=== PATIENT | female | born 1930 | race Caucasian/White ===

== ENCOUNTER 2016-12-08 08:47 | Day surgery (SDC) | payer MEDICARE ==
[~2016-12-08 08:47] MED LIST: Buffered Lidocaine 0.9% SYRIN* 5 ML/SYR SYRINGE INTRADERM ONE
[2016-12-08] MEDS ORDERED: ceFAZolin 2 GM PREMIX (*) 50 ML BAG (BBraun bag) IVPB ONE (09:14)
[2016-12-08] MEDS ORDERED: Midazolam* 1 MG/ML 5 ML VIAL (5 MG) ONE (09:53)
[2016-12-08] MEDS ORDERED: fentaNYL* 50 MCG/ML 2 ML VIAL (100 MCG VIAL) ONE (09:53)
[2016-12-08] MEDS ORDERED: Lidocaine 1.5% EPI 1:200,000* 30 ML SDV ONE (10:10)
[2016-12-08] MEDS ORDERED: Mineral Oil Sterile, TOPICAL* 25 ML BTL ONE (10:11)
[2016-12-08] MEDS ORDERED: Bupivacaine 0.25% EPI 200,000* 30 ML SDV ONE (10:21)
[2016-12-08] MEDS ORDERED: Methylene Blue 0.5 %* 50 MG/10 ML AMP IV ONE (10:22)
[2016-12-08 13:25] VITALS: BP 102/57
== END 2016-12-08 13:20 | disposition home or self-care (01) ==
LOC: OREAST 08:47
PROVIDERS: ATTEND Plastic Surgery
DX: C44.311 Basal cell carcinoma of skin of nose (principal); I10 Essential (primary) hypertension; Z87.891 Personal history of nicotine dependence; E03.9 Hypothyroidism, unspecified; E11.9 Type 2 diabetes mellitus without complications; Z79.84 Long term (current) use of oral hypoglycemic drugs
CPT/HCPCS: A9270-GY; J0690; J2250; J3010

== ENCOUNTER 2017-02-08 07:07 | Day surgery (SDC) | payer MEDICARE ==
[~2017-02-08 07:07] MED LIST changes: +Acetaminophen TAB* 325 MG PO PRN
[2017-02-08] MEDS ORDERED: Midazolam* 1 MG/ML 2 ML VIAL (2 MG) ONE (09:20)
[2017-02-08 09:50] VITALS: BP 112/45
[2017-02-08] MEDS ORDERED: Ketorolac 0.5% OPHTH (NF) 0.5 % 5 ML BTL ONE (10:54)
[2017-02-08] MEDS ORDERED: acetaZOLAMIDE TAB* 250 MG ONE (10:54)
[2017-02-08] MEDS ORDERED: Proparacaine 0.5% OPHTH.SOL* 15 ML BTL ONE (10:54)
[2017-02-08] MEDS ORDERED: Lidocaine 1% MPF* 2 ML VIAL ONE (10:54)
[2017-02-08] MEDS ORDERED: Cyclopentolate 1% OPTH.SOL* 2 ML BTL ONE (10:54)
[2017-02-08] MEDS ORDERED: Phenylephrine 2.5% OPTH.SOL* 2 ML BTL ONE (10:54)
[2017-02-08] MEDS ORDERED: Buffered Lidocaine 0.9% SYRIN* 5 ML/SYR SYRINGE ONE (10:54)
[2017-02-08] MEDS ORDERED: Neomycin/Polymy/Dex OPTH.SUSP* MAXITROL 0.1% 5 ML ONE (10:54)
[2017-02-08] MEDS ORDERED: Povidone Iodine 5% OPTH* 30 ML BTL ONE (10:54)
[2017-02-08] MEDS ORDERED: Lidocaine 2% EPI 1:200000 MPF* 20 ML VIAL ONE (10:54)
--- NOTE | 2017-02-08 10:54 | OP ---
OPERATIVE NOTE: DATE OF OPERATION: 02/08/17 DATE OF : [birth year] SURGEON: Baldev Toscano M.D. PREOPERATIVE DIAGNOSIS: Cataract, right eye. POSTOPERATIVE DIAGNOSIS: Cataract, right eye. OPERATIVE PROCEDURE: Phacoemulsification, right eye, with IOL. DESCRIPTION OF PROCEDURE: The patient was brought to the operating room after being given 1/2% Alca ine with epinephrine drops in the preoperative area. The eye was prepped and draped in the usual st erile fashion. Sterile drape and eyelid speculum were placed. Again, topical 1/2% Alcaine with epi nephrine was given. A paracentesis incision was made at the 9 o'clock position with the No.75 blade . Clear cornea incision 2.2 x 2.2-mm was created at the 12 o'clock position starting at the anterior limbus using the 2.2-mm keratome. The anterior chamber was irrigated with 0.4 mL of 1% non-preserv ative intracameral lidocaine and filled with DisCoVisc. A capsulorrhexis was completed using the cy stotome and the Utrata forceps. Hydrodissection was performed with balanced salt solution. The dolores s nucleus was removed with the Phacoemulsification handpiece without incident. Cortex was removed wi th the irrigation-aspiration handpiece. The capsular bag was re-inflated using DisCoVisc and an [id number] implant was inserted with the shooter. The pupil was very small, less than 3 mm, so a Malyugi n ring was used to dilate the pupil prior to capsulorrhexis and removed after insertion of the lens. The irrigation-aspiration handpiece was used to remove all residual DisCoVisc. The eye was refill ed with balanced salt solution and the wound checked and found to be watertight. Topical Maxitrol d rops were given. Indication for complex cataract surgery: Pupil abnormalities requiring pupil dilation device. [id number]/[facility] [place] #: [id number]
== END 2017-02-08 10:05 | disposition home or self-care (01) ==
LOC: OREAST 07:07
PROVIDERS: ATTEND Specialist
DX: E11.36 Type 2 diabetes mellitus with diabetic cataract (principal); H25.813 Combined forms of age-related cataract, bilateral; H57.09 Other anomalies of pupillary function; Z79.84 Long term (current) use of oral hypoglycemic drugs; E78.00 Pure hypercholesterolemia, unspecified; I10 Essential (primary) hypertension; Z85.828 Personal history of other malignant neoplasm of skin; Z87.891 Personal history of nicotine dependence
CPT/HCPCS: A9270-GY; J2250; V2632

== ENCOUNTER 2017-02-15 07:53 | Day surgery (SDC) | payer MEDICARE ==
[2017-02-15] MEDS ORDERED: fentaNYL* 50 MCG/ML 2 ML VIAL (100 MCG VIAL) ONE (09:30)
[2017-02-15] MEDS ORDERED: Midazolam* 1 MG/ML 2 ML VIAL (2 MG) ONE (09:30)
[2017-02-15 10:40] VITALS: BP 110/42
[2017-02-15] MEDS ORDERED: Povidone Iodine 5% OPTH* 30 ML BTL ONE (11:53)
[2017-02-15] MEDS ORDERED: Cyclopentolate 1% OPTH.SOL* 2 ML BTL ONE (11:53)
[2017-02-15] MEDS ORDERED: Lidocaine 1% MPF* 2 ML VIAL ONE (11:53)
[2017-02-15] MEDS ORDERED: Phenylephrine 2.5% OPTH.SOL* 2 ML BTL ONE (11:53)
[2017-02-15] MEDS ORDERED: Ketorolac 0.5% OPHTH (NF) 0.5 % 5 ML BTL ONE (11:53)
[2017-02-15] MEDS ORDERED: Lidocaine 2% EPI 1:200000 MPF* 20 ML VIAL ONE (11:53)
[2017-02-15] MEDS ORDERED: Buffered Lidocaine 0.9% SYRIN* 5 ML/SYR SYRINGE ONE (11:53)
[2017-02-15] MEDS ORDERED: Proparacaine 0.5% OPHTH.SOL* 15 ML BTL ONE (11:53)
[2017-02-15] MEDS ORDERED: acetaZOLAMIDE TAB* 250 MG ONE (11:53)
[2017-02-15] MEDS ORDERED: Neomycin/Polymy/Dex OPTH.SUSP* MAXITROL 0.1% 5 ML ONE (11:53)
--- NOTE | 2017-02-16 00:56 | OP ---
DATE OF OPERATION: 02/15/17 - [facility] DATE OF : [birth year] SURGEON: Baldev Toscano M.D. PREOPERATIVE DIAGNOSIS: Cataract left eye. POSTOPERATIVE DIAGNOSIS: Cataract left eye. OPERATIVE PROCEDURE: Phacoemulsification left eye with IOL. DESCRIPTION OF PROCEDURE: The patient was brought to the operating room after being given 1/2% Alcaine with epinephrine drops in the preoperative area. The eye was prepped and draped in the usual sterile fashion. Sterile drape and eyelid speculum were placed. Again, topical 1/2% Alcaine with epinephrine was given. A paracentesis incision was made at the 3 o'clock position with the No.75 blade. Clear cornea incision 2.2 x 2.2-mm was created at the 6 o'clock position starting at the anterior limbus using the 2.2-mm keratome. The anterior chamber was irrigated with 0.4 mL of 1% non-preservative intracameral lidocaine and filled with DisCoVisc. A capsulorrhexis was completed using the cystotome and the Utrata forceps. Hydrodissection was performed with balanced salt solution. The lens nucleus was removed with the Phacoemulsification handpiece without incident. Cortex was removed with the irrigation-aspiration handpiece. The capsular bag was re-inflated using DisCoVisc and an [id number] implant was inserted with the shooter oriented to the 62-degree meridian. Horizontal reference avendano were made with the patient seated in the preoperative area. Of note, the pupil was only about 3 mm, so a Malyugin ring was inserted prior to capsulorrhexis and removed after insertion and orientation of the lens. The lens position was reconfirmed after removal of the Malyugin ring. The irrigation-aspiration handpiece was used to remove all residual DisCoVisc. The eye was refilled with balanced salt solution and the wound checked and found to be watertight. Topical Maxitrol drops were given. Indication for complex cataract surgery: Iris abnormalities requiring pupil dilation device. [id number]/[facility] #: [id number] [facility]
== END 2017-02-15 10:56 | disposition home or self-care (01) ==
LOC: OREAST 07:53
PROVIDERS: ATTEND Specialist
DX: E11.36 Type 2 diabetes mellitus with diabetic cataract (principal); H25.812 Combined forms of age-related cataract, left eye; Z96.1 Presence of intraocular lens; H21.9 Unspecified disorder of iris and ciliary body; Z79.84 Long term (current) use of oral hypoglycemic drugs; I10 Essential (primary) hypertension; Z85.828 Personal history of other malignant neoplasm of skin; Z87.891 Personal history of nicotine dependence; E78.00 Pure hypercholesterolemia, unspecified
CPT/HCPCS: A9270-GY; J2250; J3010; V2787